=== PATIENT | male | born 1960 | race Caucasian/White ===

== ENCOUNTER → 2016-11-17 | Outpatient (CLI) | payer BC ==
[~2016-11-17] MED LIST: FEXO1TAB45 PO; MULTTAB PO
[2016-11-17 09:51] LABS: ESTIMATED AVERAGE GLUCOSE 126 mg/dl; HA1C FLAG Normal (Normal)
[2016-11-17 09:58] LABS: BLOOD UREA NITROGEN 16 mg/dl (7-18); BUN/CREATININE RATIO 16.1 (10-20); CARBON DIOXIDE 27 mmol/L (21-32); CHLORIDE 109 mmol/L (98-107); CHOLESTEROL 155 mg/dl (0-200); CREATININE 0.99 mg/dl (0.60-1.40); GLUCOSE 108 mg/dl (70-99); POTASSIUM 4.3 mmol/L (3.5-5.1); SODIUM 142 mmol/L (136-145)
[2016-11-17 10:04] LABS: CHOLESTEROL/HDL RATIO 3.7; HDL CHOLESTEROL 42 mg/dl; LDL CHOLESTEROL CALCULATED 94 mg/dl; TRIGLYCERIDES 97 mg/dl (0-150); VERY LOW DENSITY LIPOPROT CALC 19 mg/dl
== END | disposition home or self-care (01) ==
LOC: C.LAB1850 06:59
PROVIDERS: ATTEND Internal Medicine
DX: Z80.42 Family history of malignant neoplasm of prostate (principal); Z13.1 Encounter for screening for diabetes mellitus; Z13.220 Encounter for screening for lipoid disorders; R73.9 Hyperglycemia, unspecified

== ENCOUNTER 2017-04-20 22:22 | Emergency (ER) | payer OTHER, BC ==
[~2017-04-20] VITALS: Ht 182.9 cm; Wt 94.2 kg
[2017-04-20 22:30] VITALS: BP 153/83; PULSE 67; TEMP 36.6; O2SAT 98; Ht 182.9 cm; Wt 94.2 kg
[2017-04-20] MEDS: GELATIN SPONGE 12-7MM EXT STA (22:39)
[2017-04-20] MEDS: GELATIN SPONGE 12-7MM ONE (22:39)
--- NOTE | 2017-04-20 22:49 | EMERGENCY ROOM VISIT NOTE ---
ED Visit Note First contact with patient: 22:39 CHIEF COMPLAINT: Left index finger laceration HISTORY OF PRESENT ILLNESS: This 56-year-old male patient presents to the emergency department ambulatory after cutting the left index finger on a box toe flanger stitchdowns. The bleeding has not stopped. There is no weakness or numbness of the area. Tetanus shot is up-to-date. Full range of motion of the finger. The patient rates the pain as stinging and 2/10. REVIEW OF SYSTEMS: A 6 system review of systems was completed with positives and pertinent negatives listed in the HPI. ALLERGIES: No known drug allergies MEDICATIONS: Madeleine, multivitamin PMH: Seasonal allergies SOCIAL HISTORY: Patient lives locally with family. Non-smoker. PHYSICAL EXAM: Vital Signs: Reviewed Nurse's notes, vital signs stable. GENERAL : This is a 56-year-old male, in no acute distress, well-developed, well- nourished. SKIN: There is a 2 cm long avulsion laceration to the lateral aspect of the left index finger. It is superficial and the top layer of skin has been avulsed. There is no foreign material in the wound and it looks clean. There is active bleeding. No deep structures are seen in the base of the wound. Extension and flexion of the finger is full and strong. Sensation to pain and light touch is intact. EMERGENCY DEPARTMENT COURSE: I examined the patient. Verbal consent was obtained to perform the procedure. The laceration was cleaned with saline and betadine. Gelfoam was applied to the avulsion laceration and the area was dressed with a pressure dressing. The bleeding stopped. The patient tolerated the procedure well. The patient was discharged home in stable condition. Blood Pressure Screening: Patient was found to have a slightly elevated blood pressure due to circumstances. I do not believe that the patient requires hypertension monitoring. Medication reconciliation: I attest that I have personally reviewed the patient 's current medication list. DIAGNOSIS: Avulsion laceration of the finger Current/Historical Medications Scheduled Fexofenadine Hcl (Madeleine), 60 MG PO DAILY Multivitamins/Minerals (Mvi With Minerals), 1 TAB PO DAILY Allergies Coded Allergies: No Known Allergies (Unverified , 10/28/15) Vital Signs Date Time Temp Pulse Resp B/P (MAP) Pulse Ox O2 Delivery O2 Flow Rate FiO2 04/20/17 22:30 36.6 67 18 153/83 98 Room Air Departure Information Impression Primary Impression: Laceration of finger Dispostion Home / Self-Care Condition GOOD Referrals No Doctor, Assigned (PCP) Patient Instructions My [facility] Additional Instructions You have been treated in the Emergency Department today for your finger avulsion. Leave the GELFOAM and dressing in place for the next 48 hours. Keep the dressing clean and dry until time for removal. To remove the GELFOAM dressing, remove the overlying tape and then soak the wound in warm water until the piece of GELFOAM can be easily removed. Proper wound care is essential for adequate wound healing and infection prevention. You can shower and clean the wound with soap and water. Do not scour over the wound, pat dry with a towel. You can use an antibiotic ointment with a dressing/bandage over the wound for the next 3-4 days. After this time you may leave the wound dry and open to the air. Look for signs of infection of the wound including: increased pain, swelling, foul discharge, streaking, or increased temperature. If any of these are noticed you should return to the Emergency Department for further assessment and treatment. As with any laceration you may have received nerve damage to the surrounding tissues. This damage could be permanent. For pain control, you can use the following [id number] medicines (if >12 yo): - Regular strength (325mg/tab) Tylenol (acetaminophen) 2 tabs every 4-6 hours as needed. Do not exceed 12 tablets in a 24 hour period. Avoid taking more than 4 grams (4000 mg) of Tylenol per day. This includes any other sources of acetaminophen you may take on a regular basis. - Regular strength (200 mg/tab) Advil (ibuprofen) 1-2 tabs every 4-6 hours as needed. Do not exceed a dose of 3200 mg per day. Return to the emergency department if your symptoms worsen despite treatment course outlined above. Problem Qualifiers Primary Impression: Laceration of finger Encounter type: initial encounter Finger: index finger Damage to nail status: without damage Foreign body presence: without foreign body Laterality: left Qualified Codes: S61.211A - Laceration without foreign body of left index finger without damage to nail, initial encounter
== END 2017-04-20 22:58 | disposition home or self-care (01) ==
LOC: C.EDB 22:23 → C.EDD 22:58
DX: S61.211A Laceration without foreign body of left index finger without damage to nail, initial encounter (principal); W26.0XXA Contact with knife, initial encounter

== ENCOUNTER → 2017-06-23 | Outpatient (CLI) | payer BC | END | disposition home or self-care (01) | LOC: C.PATHSPEC 17:47 | PROVIDERS: ATTEND Urology | DX: R97.20 Elevated prostate specific antigen [PSA] (principal); C61 Malignant neoplasm of prostate; N42.31 Prostatic intraepithelial neoplasia ==

== ENCOUNTER → 2017-07-11 | Outpatient (CLI) | payer BC ==
--- NOTE | 2017-07-11 15:59 | DIAGNOSTIC IMAGING REPORT ---
BONE SCAN WHOLE BODY CLINICAL HISTORY: Prostate cancer. COMPARISON STUDY: No previous studies for comparison. TECHNIQUE: 26 mCi of technetium 99m MDP was injected IV at 12:00 PM on July 11, 2017. Whole body imaging was performed in the anterior and posterior projections 3 hours following injection. FINDINGS: Expected soft tissue and renal uptake is present. Mild uptake within the right first toe is likely degenerative. Uptake within the shoulders and sternoclavicular joints is degenerative. No suspicious radiotracer uptake is identified. IMPRESSION: No evidence of skeletal metastatic disease. Electronically signed by: Neri Burkett M.D. 07/11/2017 3:57 PM Dictated Date/Time: 07/11/2017 3:56 PM
== END | disposition home or self-care (01) ==
LOC: C.NUCL 11:46
PROVIDERS: ATTEND Urology
DX: C61 Malignant neoplasm of prostate (principal)

== ENCOUNTER → 2017-09-30 | Outpatient (CLI) | payer BC ==
[~2017-09-30] MED LIST changes: +CIPR-255 PO; +CLC100 PO; +DTR5 PO; +OXYC7.5T62 PO
[2017-09-30 09:55] LABS: BLOOD UREA NITROGEN 16 mg/dl (7-18); CREATININE 1.01 mg/dl (0.60-1.40)
== END | disposition home or self-care (01) ==
LOC: C.LAB1850 07:05
PROVIDERS: ATTEND Urology
DX: R32 Unspecified urinary incontinence (principal)